=== PATIENT | male | born 1935 | race Caucasian/White ===

== ENCOUNTER 2019-02-04 13:24 | Emergency (ER) | payer MEDICARE, SELFPAY ==
[2019-02-04] VITALS (10 sets, daily range): BP systolic 113–149; BP diastolic 67–94; PULSE 61–89; RESP 15–24; TEMP 36.6; O2SAT 97–100; BMI 24.3
--- NOTE | 2019-02-04 13:34 | DI.RAD.S_ITS ---
PROCEDURE: XR CHEST 1V INDICATIONS: chest pain TECHNIQUE: One view of the chest was acquired. COMPARISON: [facility], , CHEST 1 VIEW, 02/24/2012, 17:25. FINDINGS: Surgical changes and devices: Surgical clips are seen in bilateral axilla.. Lungs and pleura: Lungs are clear. No pleural effusions or pneumothorax. Mediastinum: Mediastinal contours appear normal. Heart size is normal. Bones and chest wall: No suspicious bony lesions. Overlying soft tissues appear unremarkable. IMPRESSION: No acute cardiopulmonary pathology. Dictated by: Nato Lund M.D. on 02/04/2019 at 14:45 Approved by: Nato Lund M.D. on 02/04/2019 at 14:46
[2019-02-04 13:40] LABS: Add Manual Diff / Slide Review NO; Basophils Absolute Auto 0 /uL (0-100); Basophils Percent Auto 0.2 % (0-2); Eosinophils Absolute Auto 100 /uL (0-450); Eosinophils Percent Auto 1.1 % (2-4); Hematocrit 43.6 % (41-53); Hemoglobin 14.9 g/dL (13.5-17.5); Lymphocytes Absolute Auto 1900 /uL (1100-4500); Lymphocytes Percent Auto 25.1 % (25-40); Mean Corpuscular HGB Conc 34.2 % (30-36); Mean Corpuscular Hemoglobin 32.3 PG (26-34); Mean Corpuscular Volume 94.4 fL (80-100); Monocytes Absolute Auto 800 /uL (0-900); Monocytes Percent Auto 9.9 % (3-14); Neutrophils Absolute Auto 4900 /uL (1500-7000); Neutrophils Percent Auto 63.7 % (50-75); Platelet Count 188 X10^3/uL (150-400); Red Blood Cell Count 4.62 X10^6/uL (4.5-5.9); Red Cell Distribution Width 13.7 % (11.6-14.8); White Blood Cell Count 7.7 X10^3/uL (4.5-11.0)
[2019-02-04 13:47] LABS: INR 0.9 (0.9-1.3); Prothrombin Time 10.6 SECONDS (10.1-12.7)
[2019-02-04 13:49] LABS: PTT Partial Thromboplastin Tim 28 SECONDS (26.4-36.2)
[2019-02-04 13:54] LABS: Alanine Aminotransferase 24 IU/L (21-72); Albumin 4.6 g/dL (3.5-5.0); Albumin Globulin Ratio 1.4 (1.0-2.8); Alkaline Phosphatase 109 U/L (38-126); Aspartate Aminotransferase 29 IU/L (17-59); BUN Creatinine Ratio 18.6 (6-22); Bilirubin Total 0.7 mg/dL (0.2-1.3); Blood Urea Nitrogen 26 mg/dL (9-20); Calcium 9.6 mg/dL (8.4-10.2); Carbon Dioxide 25 mmol/L (22-32); Chloride 104 mmol/L (98-107); Creatine Kinase 71 U/L (55-170); Estimated Glomerular Filt Rate 48.6 mL/min (>60); Globulin 3.4 g/dL (1.7-4.1); Glucose 96 mg/dL (80-110); HEMOLYSIS < 15 (0-50); Lipase 205 U/L (23-300); Potassium 4.8 mmol/L (3.4-5.1); Sodium 141 mmol/L (137-145)
--- NOTE | 2019-02-04 13:57 | ED_ITS ---
HPI - Chest Pain General Chief Complaint: Chest Pain Stated Complaint: left chest discomfort,sick to stomach Time Seen by Provider: 02/04/19 13:35 Source: patient and family Mode of arrival: ambulatory Limitations: no limitations History of Present Illness HPI narrative: Patient comes to the emergency department complaining of an episode of chest pain, nausea, and diaphoresis while driving in the car today. Patient states he went for a walk this morning for about 35 minutes, and felt fine on this, but while driving up the freeway with his , he suddenly began to feel the symptoms noted above. Patient states the pain was located in his left chest and felt like a dull ache. It did not radiate. Patient states that got so bad that he did not feel he could drive any longer, and so had his take over the driving. Patient states that he is feeling quite a bit better now. He states the diaphoresis and nausea are gone, and he does not really have any chest discomfort any longer, but that the symptoms lasted for about 30 minutes or so. Patient just had a stress test done in [place] in the last few months which was negative. He states that he has a distant history of a single cardiac stent placement, and has not had any further troubles with this that he knows of. He states the stent was put in at [facility], and that he follows with Dr. Guevara occasionally. Patient denies any other localized symptoms of illness recently. No cough or specific feeling of shortness of breath. No abdominal pain or vomiting. No diarrhea or constipation. No fevers. Patient states that he has been feeling generally more tired than usual over about the last 5 days, but also states he has not been sleeping so well. No other complaints at this time. Related Data Home Medications Medication Instructions Recorded Confirmed B Vitamins 1 dose PO DAILY 02/04/19 02/04/19 Probiotic 1 cap PO DAILY 02/04/19 02/04/19 Vitamin D3 1 cap PO DAILY 02/04/19 02/04/19 aspirin 81 mg PO QPM 02/04/19 02/04/19 atorvastatin 20 mg PO BEDTIME 02/04/19 02/04/19 Allergies Allergy/AdvReac Type Severity Reaction Status Date / Time No Known Drug Allergies Allergy Verified 02/04/19 15:16 Review of Systems Constitutional Constitutional: Denies chills, Denies fatigue, Denies fever(s), Denies frequent falls, Denies lethargy and Denies weakness Eyes Eyes: Denies change in vision, Denies eye discharge, Denies irritation and Denies loss of vision ENT Ears, Nose, Mouth, and Throat: Denies change in voice, Denies dizziness, Denies neck pain, Denies sore throat and Denies throat swelling Cardiovascular Cardiovascular: Reports chest pain, Denies irregular heart rhythm, Denies lightheadedness, Denies palpitations, Denies dyspnea, Denies dyspnea on exertion and Denies orthopnea Respiratory Respiratory: Denies cough, Denies dyspnea, Denies dyspnea on exertion and Denies wheezing Gastrointestinal Gastrointestinal: Denies abdominal pain, Denies change in bowel habits, Denies diarrhea, Denies nausea and Denies vomiting Genitourinary Genitourinary: Denies hematuria, Denies flank pain, Denies urinary incontinence and Denies urinary urgency Musculoskeletal Musculoskeletal: Denies back pain, Denies muscle weakness, Denies neck pain, Denies numbness and Denies tingling Integumentary/Breasts Skin/Breast: Denies pruritus, Denies erythema, Denies rash and Denies wounds Neurologic Neurologic: Denies behavioral changes, Denies confusion, Denies dizziness, Denies frequent falls, Denies loss of vision, Denies numbness, Denies tingling and Denies weakness Psychiatric Psychiatric: Denies anxiety, Denies behavioral changes, Denies confusion, Denies depression, Denies homicidal ideation and Denies suicidal ideation Endocrine Endocrine: Denies fatigue, Denies flushing and Denies palpitations Hematologic/Lymphatic Hematologic/Lymphatic: Denies easy bruising Allergic/Immunologic Allergic/Immunologic: Denies urticaria, Denies throat swelling and Denies wheezing [facility] Medical History BPH (benign prostatic hyperplasia) (Acute) Carotid artery disease (Acute) Coronary artery disease (Acute) GERD (gastroesophageal reflux disease) (Acute) HTN (hypertension) (Acute) Surgical History H/O coronary angioplasty (Acute) Social History Smoking Status: Never smoker alcohol intake: current Exam Initial Vital Signs Initial Vital Signs: Vital Signs Temperature 97.8 F 02/04/19 13:30 Pulse Rate 73 08/29/19 13:30 Respiratory Rate 24 02/04/19 13:30 Blood Pressure 115/68 02/04/19 13:30 Pulse Oximetry 98 02/04/19 13:30 Const General: cooperative and well developed Nutritional Appearance: well nourished Orientation: alert, awake, oriented x3 and not confused [facility] Head: normocephalic and atraumatic Ears: external ears normal Nose: external nose normal and No nasal discharge Face and sinus: face symmetric and No dry mucous membranes Mouth: oral mucosae normal and moist mucous membranes Teeth and gingiva: dentition normal Eyes General: appearance normal, both eyes and all related structures Eyelids: eyelids normal Conjunctivae: conjunctivae normal Sclera: sclerae normal Pupils: PERRL EOM: EOM intact bilaterally Neck Neck: normal visual inspection, trachea midline, No lymphadenopathy, No midline deformity and No JVD Lymphatic: No lymphedema Chest Chest: normal inspection of the chest Resp Effort & Inspection: normal respiratory effort, able to speak in complete sentences, no respiratory distress and no use of accessory muscles Auscultation: clear to auscultation bilaterally, no rales, no rhonchi and no wheezes Cardio Rate: regular rate Rhythm: regular rhythm Heart Sounds: no click, no gallops, no murmurs and no rubs Pulses: normal peripheral pulses GI Inspection: non-distended Palpation: soft, no hepatosplenomegaly, No guarding, No pulsatile mass and No tender Back/Spine/Pelvis Back: No CVA tenderness Cervical Spine: cervical ROM normal and No pain with cervical ROM Thoracic/Lumbar Spine: thoracic and lumbar spine normal to inspection Skin General: no rashes or lesions noted, No jaundice and No petechiae Neuro General: alert, oriented x3, gait normal and no focal motor deficits Speech: speech normal Extrem General: full ROM, no clubbing, cyanosis or edema, no pedal edema and no calf tenderness Psych Appearance: well kempt Mental Status: mental status grossly normal Attitude: cooperative Thought Content: normal and suicidality Judgment: judgment good Course Course Course Narrative: The patient was worked up with labs, EKG, and chest x-ray. His initial troponin was negative. I spoke with Dr. Guevara, the patient's certified nurse, who recommended that the patient have a repeat troponin. If this is negative. The patient may go home and go for a walk in the morning, but should return if any further chest symptoms occur. Repeat troponin was actually found to be elevated at 0.091. I did speak with Dr. Guevara again, who felt the patient had had a non ST elevation NC, very likely, and recommended transfer to [facility], as well as administration of aspirin, Plavix, heparin, beta-ian, DEBBIE inhibitor, and statin. Patient had already received aspirin today. All the other medications above were ordered and are in the process of being administered at the time of this dictation. I spoke with Dr. Moreno, who did agree to accept the patient in transfer to the hospitalist service at [facility]. I spoke with the patient and his daughter, who expressed understanding and were agreeable to the plan. Orders Ordered: ED Orders 02/04/19 13:30 Complete Blood Count AUTO DIFF Stat Comprehensive Metabolic Panel Stat Lipase Stat Partial Thromboplastin Time Stat Prothrombin Time INR Stat Troponin & CK Cardiac Panel Stat 02/04/19 13:32 EKG-12 Lead Stat 02/04/19 13:34 XR chest 1V Stat 02/04/19 17:05 Troponin I Stat 02/04/19 17:48 EKG-12 Lead Routine Heparin Sodium/Dextrose (Heparin Drip) 25,000 unit in 500 mls @ 20 mls/hr IV CONT CHRISTINA; Protocol Last Admin: 02/04/19 18:07 Dose: 1,000 units/hr, 20 mls/hr Documented by: SONAL Discontinued Medications Aspirin (Aspirin Chew) 243 mg PO NOW ONE Stop: 02/04/19 14:09 Last Admin: 02/04/19 14:19 Dose: 243 mg Documented by: SONAL Atorvastatin Calcium (Lipitor) 40 mg PO NOW ONE Stop: 02/04/19 17:49 Last Admin: 02/04/19 18:09 Dose: 40 mg Documented by: SONAL Clopidogrel Bisulfate (Plavix) 600 mg PO NOW ONE Stop: 02/04/19 17:49 Last Admin: 02/04/19 18:07 Dose: 600 mg Documented by: SONAL Al Hydrox/Mg Hydrox/Simethicone 20 ml/ Lidocaine HCl 15 ml 0 ml PO NOW ONE Stop: 02/04/19 16:56 Last Admin: 02/04/19 17:19 Dose: 35 ml Documented by: SONAL Heparin Sodium (Porcine) (Heparin) 5,000 unit IV NOW ONE Stop: 02/04/19 17:49 Last Admin: 02/04/19 18:09 Dose: 5,000 unit Documented by: SONAL Lisinopril (Zestril) 10 mg PO NOW ONE Stop: 02/04/19 17:49 Last Admin: 02/04/19 18:07 Dose: 10 mg Documented by: SONAL Metoprolol Succinate (Toprol Xl) 50 mg PO NOW ONE Stop: 02/04/19 17:49 Last Admin: 02/04/19 18:09 Dose: 50 mg Documented by: SONAL Vital Signs Vital signs: Vital Signs - 8 hr 02/04/19 13:30 02/04/19 14:00 02/04/19 14:30 Temperature 97.8 F Pulse Rate 73 89 85 Respiratory Rate 24 17 16 Blood Pressure 115/68 Blood Pressure [Left Arm] 115/86 118/67 Pulse Oximetry 98 98 97 02/04/19 15:04 02/04/19 18:01 02/04/19 18:07 Temperature Pulse Rate 78 61 71 Respiratory Rate 16 15 Blood Pressure 129/79 Blood Pressure [Left Arm] 128/72 113/94 H Pulse Oximetry 99 100 02/04/19 18:09 Temperature Pulse Rate 71 Respiratory Rate Blood Pressure 129/75 Blood Pressure [Left Arm] Pulse Oximetry MDM - Chest Pain Medical Records Data Attestation: I reviewed the patient's medical records. Lab Data Attestation: I reviewed the patient's lab results. Result diagrams: 02/04/19 13:30 02/04/19 13:30 Labs: Lab Results 02/04/19 02/04/19 02/04/19 Range/Units 13:30 13:30 13:30 WBC 7.7 (4.5-11.0) X10^3/uL RBC 4.62 (4.5-5.9) X10^6/uL Hgb 14.9 (13.5-17.5) g/dL Hct 43.6 (41-53) % MCV 94.4 (80-100) fL MCH 32.3 (26-34) PG MCHC 34.2 (30-36) % RDW 13.7 (11.6-14.8) % Plt Count 188 (150-400) X10^3/uL Neut % (Auto) 63.7 (50-75) % Lymph % (Auto) 25.1 (25-40) % [place] % (Auto) 9.9 (3-14) % Eos % (Auto) 1.1 L (2-4) % Baso % (Auto) 0.2 (0-2) % Neut # (Auto) 4900 (8091-0576) /uL Lymph # (Auto) 1900 (1184-6773) /uL [place] # (Auto) 800 (0-900) /uL Eos # (Auto) 100 (0-450) /uL Baso # (Auto) 0 (0-100) /uL PT 10.6 (10.1-12.7) SECONDS INR 0.9 (0.9-1.3) APTT 28 (26.4-36.2) SECONDS Sodium 141 (137-145) mmol/L Potassium 4.8 (3.4-5.1) mmol/L Chloride 104 (98-107) mmol/L Carbon Dioxide 25 (22-32) mmol/L BUN 26 H (9-20) mg/dL Creatinine 1.40 H (0.66-1.25) mg/dL Estimated GFR 48.6 L (>60) mL/min BUN/Creatinine Ratio 18.6 (6-22) Glucose 96 (80-110) mg/dL Calcium 9.6 (8.4-10.2) mg/dL Total Bilirubin 0.7 (0.2-1.3) mg/dL AST 29 (17-59) IU/L ALT 24 (21-72) IU/L Alkaline Phosphatase 109 (38-126) U/L Total Creatine Kinase 71 (55-170) U/L CK-MB (CK-2) TNP CK-MB (CK-2) Rel Index TNP Troponin I < 0.012 (0.01-0.034) ng/mL Total Protein 8.0 (6.3-8.2) g/dL Albumin 4.6 (3.5-5.0) g/dL Globulin 3.4 (1.7-4.1) g/dL Albumin/Globulin Ratio 1.4 (1.0-2.8) Lipase 205 (23-300) U/L 02/04/19 Range/Units 17:05 WBC (4.5-11.0) X10^3/uL RBC (4.5-5.9) X10^6/uL Hgb (13.5-17.5) g/dL Hct (41-53) % MCV (80-100) fL MCH (26-34) PG MCHC (30-36) % RDW (11.6-14.8) % Plt Count (150-400) X10^3/uL Neut % (Auto) (50-75) % Lymph % (Auto) (25-40) % [place] % (Auto) (3-14) % Eos % (Auto) (2-4) % Baso % (Auto) (0-2) % Neut # (Auto) (4715-1874) /uL Lymph # (Auto) (0527-4491) /uL [place] # (Auto) (0-900) /uL Eos # (Auto) (0-450) /uL Baso # (Auto) (0-100) /uL PT (10.1-12.7) SECONDS INR (0.9-1.3) APTT (26.4-36.2) SECONDS Sodium (137-145) mmol/L Potassium (3.4-5.1) mmol/L Chloride (98-107) mmol/L Carbon Dioxide (22-32) mmol/L BUN (9-20) mg/dL Creatinine (0.66-1.25) mg/dL Estimated GFR (>60) mL/min BUN/Creatinine Ratio (6-22) Glucose (80-110) mg/dL Calcium (8.4-10.2) mg/dL Total Bilirubin (0.2-1.3) mg/dL AST (17-59) IU/L ALT (21-72) IU/L Alkaline Phosphatase (38-126) U/L Total Creatine Kinase (55-170) U/L CK-MB (CK-2) CK-MB (CK-2) Rel Index Troponin I 0.093 H (0.01-0.034) ng/mL Total Protein (6.3-8.2) g/dL Albumin (3.5-5.0) g/dL Globulin (1.7-4.1) g/dL Albumin/Globulin Ratio (1.0-2.8) Lipase (23-300) U/L Imaging Data Chest x-ray: Radiologist's impression: PROCEDURE: XR CHEST 1V INDICATIONS: chest pain TECHNIQUE: One view of the chest was acquired. COMPARISON: [facility], CHEST 1 VIEW, 02/24/2012, 17:25. FINDINGS: Surgical changes and devices: Surgical clips are seen in bilateral axilla.. Lungs and pleura: Lungs are clear. No pleural effusions or pneumothorax. Mediastinum: Mediastinal contours appear normal. Heart size is normal. Bones and chest wall: No suspicious bony lesions. Overlying soft tissues appear unremarkable. IMPRESSION: No acute cardiopulmonary pathology. Dictated by: Nato Lund M.D. on 02/04/2019 at 14:45 Approved by: Nato Lund M.D. on 02/04/2019 at 14:46 ECG Data Attestation: I personally reviewed and interpreted this ECG as follows: (See below) Interpretation: EKG #1, performed February 04, 2019 at 1:32 p.m., as follows: Regular ventricular rhythm with a rate of 83 beats per minute OH interval 173 millisecond QRS duration 95 millisecond QTC interval 392 millisecond Occasional ectopy No significant ST T wave changes Interpretation: Normal sinus rhythm with occasional PVCs; no signs of acute ischemia; borderline EKG as interpreted by ED MD. EKG 2., performed February 04, 2019 at 5:46 p.m., as follows: Regular ventricular rhythm with a rate of 60 beats per minute OH interval 177 milliseconds QRS duration 90 milliseconds QTC interval 393 millisecond No ectopy No significant ST T wave changes Mild artifact Interpretation: Normal sinus rhythm; no signs of acute ischemia; normal EKG as interpreted by EMD. Discharge Plan Departure Patient Disposition: [facility] Clinical Impression: Acute non-ST elevation myocardial infarction (NSTEMI) Prescriptions: No Action B Vitamins 1 dose PO DAILY RF: 0 atorvastatin 20 mg Tablet 20 mg PO BEDTIME RF: 0 aspirin 81 mg Tablet,Delayed Release (Dr/Ec) 81 mg PO QPM RF: 0 Probiotic 1 cap PO DAILY RF: 0 Vitamin D3 1 cap PO DAILY RF: 0
[2019-02-04 14:05] LABS: Troponin I < 0.012 ng/mL (0.01-0.034)
[2019-02-04] MEDS: ASPIRIN 81 MG CHEW TAB 243 MG PO (14:19)
[2019-02-04] MEDS: MAG HYDROX/ALUMINUM/SIMETH SUS 20 ML, LIDOCAINE VISCOUS 2% 15 ML PO (17:19)
[2019-02-04 17:33] LABS: Troponin I 0.093 ng/mL (0.01-0.034)
[2019-02-04] MEDS: HEPARIN DRIP 25,000 UNIT/500 ML IV.SOLN 20 UNIT IV (18:07)
[2019-02-04] MEDS: CLOPIDOGREL 75 MG TABLET 600 MG PO (18:07)
[2019-02-04] MEDS: LISINOPRIL 10 MG TABLET PO (18:07)
[2019-02-04] MEDS: HEPARIN 5,000 UNIT/ML VIAL 5000 UNIT IV (18:09)
[2019-02-04] MEDS: ATORVASTATIN 20 MG TABLET 40 MG PO (18:09)
[2019-02-04] MEDS: METOPROLOL ER 50 MG TABLET PO (18:09)
--- NOTE | 2019-02-04 22:14 | PC.NURSE ---
Pt discharged with [facility] ambulance to [facility]. IV heparin infusing upon transfer
== END 2019-02-04 19:37 | disposition short-term general hospital (02) ==
PROVIDERS: Emergency Provider Emergency Medicine
DX: I21.4 Non-ST elevation (NSTEMI) myocardial infarction (principal)
CPT/HCPCS: 36415; 36591; 71045; 80053; 82550; 83690; 84484; 85025; 85610; 85730; 93005; 96365; 96366; 96375; 99284; 99285; J1644

== ENCOUNTER → 2020-01-26 07:40 | Outpatient (CLI) | payer MEDICARE, SELFPAY ==
[2020-01-26 08:38] LABS: Add Manual Diff / Slide Review NO; Basophils Absolute Auto 0 /uL (0-100); Basophils Percent Auto 0.2 % (0-2); Eosinophils Absolute Auto 100 /uL (0-450); Eosinophils Percent Auto 2.1 % (2-4); Hematocrit 40.5 % (41-53); Hemoglobin 14.1 g/dL (13.5-17.5); Lymphocytes Absolute Auto 1900 /uL (1100-4500); Lymphocytes Percent Auto 33.5 % (25-40); Mean Corpuscular HGB Conc 34.8 % (30-36); Mean Corpuscular Hemoglobin 34.6 PG (26-34); Mean Corpuscular Volume 99.4 fL (80-100); Monocytes Absolute Auto 500 /uL (0-900); Monocytes Percent Auto 9.4 % (3-14); Neutrophils Absolute Auto 3100 /uL (1500-7000); Neutrophils Percent Auto 54.8 % (50-75); Platelet Count 156 X10^3/uL (150-400); Red Blood Cell Count 4.07 X10^6/uL (4.5-5.9); Red Cell Distribution Width 13.1 % (11.6-14.8); White Blood Cell Count 5.7 X10^3/uL (4.5-11.0)
[2020-01-26 09:10] LABS: Alanine Aminotransferase 35 IU/L (<50); Albumin 4.1 g/dL (3.5-5.0); Albumin Globulin Ratio 1.4 (1.0-2.8); Alkaline Phosphatase 106 U/L (38-126); Aspartate Aminotransferase 37 IU/L (17-59); Bilirubin Total 0.7 mg/dL (0.2-1.3); Blood Urea Nitrogen 21 mg/dL (9-20); Carbon Dioxide 28 mmol/L (22-32); Chloride 106 mmol/L (98-107); Cholesterol 138 mg/dL (140-199); Estimated Glomerular Filt Rate 48.5 mL/min (>60); Globulin 2.9 g/dL (1.7-4.1); Glucose 87 mg/dL (80-110); HDL Cholesterol 63 mg/dL (40-60); HEMOLYSIS < 15 (0-50); LDL Cholesterol Calculated 63 mg/dL (<100); Potassium 4.6 mmol/L (3.4-5.1); Sodium 139 mmol/L (137-145); Triglycerides 58 mg/dL (35-150)
[2020-01-26 09:27] LABS: Vitamin D 25 Hydroxy (D3) 50.3 ng/mL (30.0-100.0)
[2020-01-26 09:40] LABS: TSH w/ Reflex to FT4 2.23 uIU/mL (0.47-4.68)
[2020-01-26 10:00] LABS: Vitamin B12 804 pg/mL (239-931)
== END ==
PROVIDERS: Referring Provider Internal Medicine; Visit Provider Internal Medicine
DX: R53.83 Other fatigue (principal); E55.9 Vitamin D deficiency, unspecified; I10 Essential (primary) hypertension; E78.00 Pure hypercholesterolemia, unspecified
CPT/HCPCS: 36415; 80053; 80061; 82306; 82607; 84443; 85025

== ENCOUNTER → 2021-12-03 11:00 | Outpatient (CLI) | payer MEDICARE, SELFPAY | PROVIDERS: Referring Provider Nurse Practitioner Family; Visit Provider Nurse Practitioner Family | DX: Z53.20 Procedure and treatment not carried out because of patient's decision for unspecified reasons (principal) ==

== ENCOUNTER → 2021-12-14 13:40 | Outpatient (CLI) | payer MEDICARE, SELFPAY ==
--- NOTE | 2021-12-14 | DI.NM.S_ITS ---
PROCEDURE: NM EXERCISE TREADMILL NON NUC COMPARISON: None. INDICATIONS: Dyspnea, unspecified FINDINGS: Rest ECG sinus rhythm. [facility] protocol 9:00, maximum heart rate 127 bpm (93% peak predicted), maximum blood pressure 160/90, 10.1 METS, BRIGID -86%. Stress ECG sinus tachycardia, no ST segment changes, PACs and PVCs in early recovery. No exercise induced chest pain. IMPRESSION: No evidence of exercise-induced ischemia or arrhythmia on ECG. Normal blood pressure response to exercise. Excellent exercise capacity. Dictated by: Indu Alex D.O. on 12/14/2021 at 16:47 Approved by: Indu Alex D.O. on 12/14/2021 at 16:52
[2021-12-14 14:41] LABS: COVID19 -Nasal RAPID Negative (Negative)
== END ==
PROVIDERS: Referring Provider Internal Medicine Cardiovascular Disease; Visit Provider Internal Medicine Cardiovascular Disease
DX: R06.00 Dyspnea, unspecified (principal); Z95.5 Presence of coronary angioplasty implant and graft; Z20.822 Contact with and (suspected) exposure to COVID-19
CPT/HCPCS: 87635; 93017